=== PATIENT | female | born 1965 | race Hispanic/Latino ===

== ENCOUNTER 2019-05-30 08:34 | Emergency (ER) | payer OTHER ==
[2019-05-30] MEDS ORDERED: NA CHLORIDE 0.9% 1,000 ML ONE (09:10)
[2019-05-30 09:30] LABS: Absolute Lymphocytes (CBC) 1.1 K/uL (0.7-4.9); Basophils % 0.6 % (0-1.3); Hematocrit 39.9 % (36.0-45.0); Lymphocytes % 25.4 % (15.3-44.8); MPV 9.5 fL (7.6-11.3); RBC Red Blood Cell Count 4.35 M/uL (3.86-4.86)
--- NOTE | 2019-05-30 09:31 | RAD REPORT ---
EXAM DESCRIPTION: CT - Stone Protocol - 05/30/2019 9:16 am CLINICAL HISTORY: Left flank pain, history of kidney stones COMPARISON: CT February 2017 TECHNIQUE: Axial 3 mm thick images were obtained without oral or IV contrast. The [id number] span s the entirety of the system including uppermost abdomen and lung bases. All CT scans are performed using dose optimization technique as appropriate and may include automated exposure control or mA/KV adjustment according to patient size. FINDINGS: Mild left-sided hydronephrosis is present secondary to a 3 mm left UVJ calculus. Patient h as multiple bilateral 2-7 mm calyx calculi. Left kidney appears minimally edematous relative to the r ight. No suspicious renal masses. Isodense masses and pyelonephritis are not excluded on a stone prot ocol CT scan. Urinary bladder is fully contracted. Bladder calculus is not seen. No significant adren al finding. No focal liver lesions seen on noncontrast imaging. There is a subtle nodularity to the liver capsule . Correlation can be made with liver function studies. Liver size within normal range. The spleen and pancreas show no suspicious findings. No gallbladder or biliary tree abnormality ident ified. No suspicious bowel findings. No appendicitis findings. Patient has minimal left-sided diverticulosis . Uterus is absent. Ovaries are absent or atrophic. No mass or bulky lymphadenopathy. No omental thickening. No free air, free fluid or inflammatory stra nding. No significant bony abnormality. Degenerative changes are present. Most lumbar level is sacralized. T his body labeled L5. L4-5 degenerative disc disease is present. Clips are present along the anterior margin of the disc. 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 Slight re trolisthesis of L1 relative to L2 seen with disc space narrowing. IMPRESSION: Mild left-sided hydronephrosis secondary to a 3 mm left UVJ calculus. Multiple bilateral nonobstructing 2-7 mm calyx calculi. Subtle nodularity to the liver capsule with no focal lesions seen. Correlation can be made with liver function studies. Isodense masses and pyelonephritis are not excluded on stone protocol technique. Lumbar spine degenerative change as detailed.
[2019-05-30 09:40] LABS: Urine Bacteria >50 /HPF (<20); Urine Culture Reflex Order REFLEXED; Urine RBC TNTC /HPF (NONE SEEN)
[2019-05-30] MEDS ORDERED: ONDANSETRON 4 MG/2 ML VIAL ONE (09:40)
[2019-05-30] MEDS ORDERED: MORPHINE 4 MG/ML SYR ONE (09:40)
[2019-05-30] MEDS ORDERED: TAMSULOSIN 0.4 MG SR CAP ONE (09:45)
[2019-05-30 09:46] LABS: Albumin 3.5 g/dL (3.4-5.0); Bilirubin Direct 0.2 mg/dL (0-0.2); Bilirubin Total 0.5 mg/dL (0.2-1.0); Potassium 4.2 mmol/L (3.5-5.1); Protein, Total 6.8 g/dL (6.4-8.2)
--- NOTE | 2019-05-30 10:43 | ER ---
Nurse's Notes [facility] Name: Qi Luther Age: 53 yrs Sex: Female : 1965 Arrival Date: 05/30/2019 Time: 08:37 Bed 6 Private MD: Jama Calderon Diagnosis: Calculus of kidney with calculus of ureter Presentation: 05/30 08:57 Presenting complaint: Patient states: L flank pain that began last night. Pt reports a ss history of kidney stones and believes this may be another. Transition of care: patient was not received from another setting of care. Onset of symptoms was May 29, 2019. Risk Assessment: Do you want to hurt yourself or someone else? Patient reports no desire to harm self or others. Initial Sepsis Screen: Does the patient meet any 2 criteria? No. Patient's initial sepsis screen is negative. Does the patient have a suspected source of infection? No. Patient's initial sepsis screen is negative. Care prior to arrival: None. 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 - Social history:: Smoking status: Patient/guardian denies using tobacco. - Ebola Screening: : Patient denies exposure to infectious person Patient denies travel to an Ebola-affected area in the 21 days before illness onset. Screenin:10 Abuse screen: Denies threats or abuse. Denies injuries from another. Nutritional sv screening: No deficits noted. Tuberculosis screening: No symptoms or risk factors identified. Fall Risk None identified. Assessment: 09:10 General: Appears in no apparent distress. uncomfortable, well developed, Behavior is sv calm, cooperative, appropriate for age. Pain: Complains of pain in anterior aspect of left lateral abdomen Pain currently is 8 out of 10 on a pain scale. Quality of pain is described as sharp, Pain began 1 day ago. Is intermittent. Neuro: Level of Consciousness is awake, alert, obeys commands, Oriented to person, place, time, situation, Moves all extremities. Full function Gait is steady. Cardiovascular: Patient's skin is warm and dry. Respiratory: Airway is patent Respiratory effort is even, unlabored, Respiratory pattern is regular, symmetrical. GI: Abdomen is flat. : Reports pain in left flank(s), not urinating as much as she normally does. Derm: Skin is pink, warm \T\ dry. Musculoskeletal: Range of motion: intact in all extremities. 09:30 Reassessment: Patient appears in no apparent distress at this time. No changes from previously documented assessment. Patient and/or family updated on plan of care and expected duration. Pain level reassessed. Patient is alert, oriented x 3, equal unlabored respirations, skin warm/dry/pink. 11:15 Reassessment: Patient appears in no apparent distress at this time. Patient and/or sv family updated on plan of care and expected duration. Pain level reassessed. Patient is alert, oriented x 3, equal unlabored respirations, skin warm/dry/pink. Patient states feeling better. Patient states symptoms have improved. Vital Signs: 08:56 BP 125 / 75; Pulse 62; Resp 16; Temp 97.9(TE); Pulse Ox 99% on R/A; Weight 72.57 kg; Height 5 ft. 3 in. (160.02 cm); Pain 8/10; 09:41 BP 126 / 77; Pulse 63; Resp 16; Pulse Ox 99% ; sv 11:10 BP 118 / 78; Pulse 63; Resp 15; Temp 97.6(O); Pulse Ox 100% on R/A; mh5 08:56 Body Mass Index 28.34 (72.57 kg, 160.02 cm) ED Course: 08:37 Patient arrived in ED. ag5 08:37 Jama Calderon MD is Private Physician. ag5 08:56 Arm band placed on right wrist. 08:58 Triage completed. 08:58 Mateo Torres NP is PHCP. pm1 08:58 Erasto Goncalves MD is Attending Physician. pm1 09:00 Urine collected: clean catch specimen, blood tinged. 09:06 Bhavna Reynolds, RN is Primary Nurse. sv 09:10 Patient has correct armband on for positive identification. Bed in low position. Call sv light in reach. Adult w/ patient. Door closed. Head of bed elevated. 09:10 Inserted saline lock: 20 gauge in right antecubital area, using aseptic technique. sv Blood collected. Flushed right antecubital with 5 ml normal saline. 09:[address] via wheelchair. sv 09:13 CT completed. Patient tolerated procedure well. Patient moved back from CT. bq 09:17 CT Stone Protocol In Process Unspecified. EDMS 09:30 Awaiting lab results, Awaiting radiology results. sv 10:42 Jess Gaxiola MD is Referral Physician. pm1 11:09 IV discontinued, Pressure dressing applied. mh5 11:15 No provider procedures requiring assistance completed. sv 11:16 IV discontinued, intact, bleeding controlled, No redness/swelling at site. Pressure sv dressing applied. Administered Medications: 09:28 Drug: NS 0.9% 1000 ml Route: IV; Rate: 1000 ml; Site: right antecubital; sv 10:30 Follow up: Response: No adverse reaction; IV Status: Completed infusion; IV Intake: sv 1000ml 09:44 Drug: Zofran 4 mg Route: IVP; Site: right antecubital; sv 10:30 Follow up: Response: No adverse reaction sv 09:46 Drug: Flomax 0.4 mg Route: PO; sv 11:00 Follow up: Response: No adverse reaction sv 09:47 Drug: morphine 4 mg {Note: rass1.} Route: IVP; Site: right antecubital; sv 10:30 Follow up: Response: No adverse reaction; Pain is decreased; RASS: Alert and Calm (0) sv Intake: 10:30 IV: 1000ml; Total: 1000ml. sv Outcome: 10:42 Discharge ordered by MD. pm1 11:15 Discharged to home ambulatory, with family. sv 11:15 Condition: stable 11:15 Discharge instructions given to patient, family, Instructed on discharge instructions, follow up and referral plans. no drinking with medication, no driving heavy equipment, medication usage, increase fluid intake Demonstrated understanding of instructions, follow-up care, medications, Prescriptions given X 4. 11:16 Patient left the ED. sv Signatures: Dispatcher [employer] EDAK Bhavna Reynolds, VIRGIE RN sv Paradise Jaimes Shelby, RN RN ss Mateo Torres, TIM FOUNTAIN HELPER 1 Angi Simeon [facility] Brooke Choe [facility] Corrections: (The following items were deleted from the chart) 09:47 09:47 morphine 4 mg IVP in right antecubital sv sv
--- NOTE | 2019-05-30 10:44 | EDPHYS ---
Physician Documentation [facility] Name: Qi Luther Age: 53 yrs Sex: Female : 1965 Arrival Date: 05/30/2019 Time: 08:37 Bed 6 Private MD: Jama Calderon ED Physician Erasto Goncalves HPI: 05/30 09:16 This 53 yrs old Female presents to ER via Ambulatory with complaints of pm1 Possible Kidney Stone. 09:16 The patient complains of pain in the left low back. The pain does not radiate. Onset: pm1 The symptoms/episode began/occurred last night. Modifying factors: The symptoms are alleviated by nothing. the symptoms are aggravated by nothing. Associated signs and symptoms: Pertinent positives: hematuria, nausea, Pertinent negatives: dysuria, fever, vomiting. Severity of pain: in the emergency department the pain has improved. The patient has experienced similar episodes in the past, and the symptoms today are exactly the same, to previous kidney stones. The patient has not recently seen a physician. 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 - Social history:: Smoking status: Patient/guardian denies using tobacco. - Ebola Screening: : Patient denies exposure to infectious person Patient denies travel to an Ebola-affected area in the 21 days before illness onset. ROS: 09:16 Constitutional: Negative for fever, chills, and weight loss, Eyes: Negative for injury, pm1 pain, redness, and discharge, ENT: Negative for injury, pain, and discharge, Neck: Negative for injury, pain, and swelling, Cardiovascular: Negative for chest pain, palpitations, and edema, Respiratory: Negative for shortness of breath, cough, wheezing, and pleuritic chest pain. 09:16 MS/Extremity: Negative for injury and deformity, Skin: Negative for injury, rash, and discoloration, Neuro: Negative for headache, weakness, numbness, tingling, and seizure. 09:16 Abdomen/GI: Positive for nausea, Negative for abdominal pain, vomiting, diarrhea. 09:16 Back: Positive for flank pain, on the left. 09:16 : Positive for hematuria, Negative for urinary frequency, burning with urination, difficulty urinating. Exam: 09:16 Constitutional: This is a well developed, well nourished patient who is awake, alert, pm1 and in no acute distress. Head/Face: Normocephalic, atraumatic. Neck: Trachea midline, no thyromegaly or masses palpated, and no cervical lymphadenopathy. Supple, full range of motion without nuchal rigidity, or vertebral point tenderness. No Meningismus. Chest/axilla: Normal chest wall appearance and motion. Nontender with no deformity. No lesions are appreciated. Cardiovascular: Regular rate and rhythm with a normal S1 and S2. No gallops, murmurs, or rubs. Normal PMI, no JVD. No pulse deficits. Respiratory: Lungs have equal breath sounds bilaterally, clear to auscultation and percussion. No rales, rhonchi or wheezes noted. No increased work of breathing, no retractions or nasal flaring. Abdomen/GI: Soft, non-tender, with normal bowel sounds. No distension or tympany. No guarding or rebound. No evidence of tenderness throughout. 09:16 Skin: Warm, dry with normal turgor. Normal color with no rashes, no lesions, and no evidence of cellulitis. MS/ Extremity: Pulses equal, no cyanosis. Neurovascular intact. Full, normal range of motion. 09:16 Back: ROM is normal, normal spinal alignment noted, CVA tenderness, that is mild, is noted on the left, vertebral tenderness, is not appreciated. 09:16 Neuro: Orientation: is normal, Motor: is normal, moves all fours, Sensation: is normal, no obvious gross deficits. Vital Signs: 08:56 BP 125 / 75; Pulse 62; Resp 16; Temp 97.9(TE); Pulse Ox 99% on R/A; Weight 72.57 kg; ss Height 5 ft. 3 in. (160.02 cm); Pain 8/10; 09:41 BP 126 / 77; Pulse 63; Resp 16; Pulse Ox 99% ; sv 11:10 BP 118 / 78; Pulse 63; Resp 15; Temp 97.6(O); Pulse Ox 100% on R/A; mh5 08:56 Body Mass Index 28.34 (72.57 kg, 160.02 cm) ss MDM: 08:59 Patient medically screened. pm1 10:41 Data reviewed: vital signs. Data interpreted: Pulse oximetry: on room air is 99 %. pm1 Interpretation: normal. Counseling: I had a detailed discussion with the patient and/or guardian regarding: the historical points, exam findings, and any diagnostic results supporting the discharge/admit diagnosis, lab results, radiology results, the need for outpatient follow up, a urologist, to return to the emergency department if symptoms worsen or persist or if there are any questions or concerns that arise at home. 10:41 Special discussion: I discussed with the patient the need to follow-up with the pm1 PCP/specialist for the noted incidental finding on X-ray/CT scanning. with history of Hep C, recommended follow up on liver nodularity findings. 05/30 09:02 Order name: Basic Metabolic Panel; Complete Time: 09:57 pm1 05/30 09:02 Order name: CBC with Diff; Complete Time: 10:33 pm1 05/30 09:02 Order name: Creatinine for Radiology; Complete Time: 09:57 pm1 05/30 09:02 Order name: Hepatic Function; Complete Time: 09:57 pm1 05/30 09:02 Order name: Lipase; Complete Time: 09:57 pm1 05/30 09:02 Order name: Urine Microscopic Only; Complete Time: 09:41 pm1 05/30 09:02 Order name: CT Stone Protocol; Complete Time: 09:34 pm1 05/30 09:09 Order name: Urine Dipstick--Ancillary (enter results) eb 05/30 09:09 Order name: Urine --Ancillary (enter results) eb 05/30 09:42 Order name: Urine Culture EDVT 05/30 09:02 Order name: IV Saline Lock; Complete Time: 09:15 pm1 05/30 09:02 Order name: Labs collected and sent; Complete Time: 09:15 pm1 05/30 09:02 Order name: Urine Dipstick-Ancillary (obtain specimen); Complete Time: 09:06 pm1 Administered Medications: 09:28 Drug: NS 0.9% 1000 ml Route: IV; Rate: 1000 ml; Site: right antecubital; sv 10:30 Follow up: Response: No adverse reaction; IV Status: Completed infusion; IV Intake: sv 1000ml 09:44 Drug: Zofran 4 mg Route: IVP; Site: right antecubital; sv 10:30 Follow up: Response: No adverse reaction sv 09:46 Drug: Flomax 0.4 mg Route: PO; sv 11:00 Follow up: Response: No adverse reaction sv 09:47 Drug: morphine 4 mg {Note: rass1.} Route: IVP; Site: right antecubital; sv 10:30 Follow up: Response: No adverse reaction; Pain is decreased; RASS: Alert and Calm (0) sv Disposition: 19:49 Co-signature as Attending Physician, Erasto Goncalves MD I agree with the assessment and zayra plan of care. Disposition: 05/30/19 10:42 Discharged to Home. Impression: Calculus of kidney with calculus of ureter. - Condition is Stable. - Discharge Instructions: Kidney Stones, Dietary Guidelines to Help Prevent Kidney Stones. - Prescriptions for Tylenol- Codeine #3 300-30 mg Oral Tablet - take 2 tablets by ORAL route every 6 hours As needed; 20 tablet. Zofran 4 mg Oral Tablet - take 1 tablet by ORAL route every 8 hours As needed; 20 tablet. Flomax 0.4 mg Oral Capsule, Sust. Release 24 hr - take 1 capsule by ORAL route once daily 1/2 hour following the same meal each day; 10 capsule. Cipro 500 mg Oral Tablet - take 1 tablet by ORAL route every 12 hours for 7 days; 14 tablet. - Medication Reconciliation Form, Thank You Letter, Antibiotic Education, Prescription Opioid Use form. - Follow up: Emergency Department; When: As needed; Reason: Recheck today's complaints, Continuance of care, Re-evaluation by your physician. Follow up: Jess Gaxiola MD; When: 2 - 3 days; Reason: Recheck today's complaints, Continuance of care, Re-evaluation by your physician. - Problem is new. - Symptoms have improved. Signatures: Dispatcher [employer] Bhavna Dominguez RN RN sv Anderson, Corey, MD MD cha Smirch, Shelby, RN RN ss Marinas, Patrick, NP CHINESE LANGUAGE PROFESSOR pm1 Corrections: (The following items were deleted from the chart) 11:16 10:42 05/30/2019 10:42 Discharged to Home. Impression: Calculus of kidney with calculus sv of ureter. Condition is Stable. Forms are Medication Reconciliation Form, Thank You Letter, Antibiotic Education, Prescription Opioid Use. Follow up: Emergency Department; When: As needed; Reason: Recheck today's complaints, Continuance of care, Re-evaluation by your physician. Follow up: Jess Gaxiola; When: 2 - 3 days; Reason: Recheck today's complaints, Continuance of care, Re-evaluation by your physician. Problem is new. Symptoms have improved. pm1
[2019-05-30 11:36] VITALS: BP 118/78; TEMP 97.6; O2SAT 100
[2019-05-30 14:11] LABS: Urine Blood 3+ (NEG); Urine Glucose TRACE (NEG); Urine Protein 2+ (NEG); Urine pH 6.5 (5.0-7.0)
== END 2019-05-30 11:16 | disposition home or self-care (01) ==
LOC: ER 08:34
DX: N20.2 Calculus of kidney with calculus of ureter (principal); I10 Essential (primary) hypertension; E11.9 Type 2 diabetes mellitus without complications; Z87.442 Personal history of urinary calculi; Z88.2 Allergy status to sulfonamides
CPT/HCPCS: 96361; 87088; 85025; 87086; 80048; 36415; 81025; 80076; 83690; 76377; 74176; 96375; 96374; 99284; J7030; J2405; 81003; 81015

== ENCOUNTER 2019-09-27 14:04 | Emergency (ER) | payer OTHER ==
[2019-09-27] MEDS ORDERED: NA CHLORIDE 0.9% 1,000 ML ONE (14:45)
[2019-09-27] MEDS ORDERED: ONDANSETRON 4 MG/2 ML VIAL ONE (14:45)
[2019-09-27] MEDS ORDERED: MORPHINE 4 MG/ML SYR ONE (14:45)
[2019-09-27 14:52] LABS: Absolute Lymphocytes (CBC) 1.2 K/uL (0.7-4.9); Basophils % 0.6 % (0-1.3); Hematocrit 40.2 % (36.0-45.0); Lymphocytes % 21.1 % (15.3-44.8); MPV 9.7 fL (7.6-11.3); RBC Red Blood Cell Count 4.37 M/uL (3.86-4.86)
[2019-09-27 14:55] LABS: Urine Blood TRACE (NEG); Urine Glucose NEGATIVE (NEG); Urine Protein NEGATIVE (NEG); Urine Specific Gravity >1.030 (1.005-1.030)
--- NOTE | 2019-09-27 14:55 | RAD REPORT ---
EXAM DESCRIPTION: CT - Stone Protocol - 09/27/2019 2:33 pm CLINICAL HISTORY: FLANK PAIN COMPARISON: Stone Protocol dated 05/30/2019 TECHNIQUE: Axial 5 mm thick images were obtained without oral or IV contrast. The [id number]-cr-ggoz span s the entirety of the system including uppermost abdomen and lung bases. All CT scans are performed using dose optimization technique as appropriate and may include automated exposure control or mA/KV adjustment according to patient size. FINDINGS: Mild to moderate hydronephrosis of the right collecting system secondary to a 4-5 mm right UVJ calculus. Additional nonobstructing calyx calculi noted in each kidney. No left-sided hydronephr osis. No suspicious renal masses. Isodense masses and pyelonephritis are not excluded on a stone prot ocol CT scan. No significant adrenal finding. Bladder is fully contracted. No bladder calculi seen. S everal phleboliths are seen along the pelvic floor. Imaged portions of the liver, spleen and pancreas show no suspicious findings on non-contrast imaging . No gallbladder or biliary tree abnormality identified. No suspicious bowel findings. Minimal diverticulosis is present without diverticulitis. No hernia, mass or bulky lymphadenopathy noted. No free air, free fluid or inflammatory stranding. Degenerative disc disease present at L5-S1. Postsurgical clips are seen anterior margin of the L5-S1 disc from prior uterus or bladder suspension procedure. The uterus is surgically absent. Ovaries are atrophic or absent. IMPRESSION: Mild to moderate right-sided hydronephrosis secondary to a 4-5 mm right UVJ stone. Bilateral nonobstructing calyx calculi. Isodense masses and pyelonephritis are not excluded on stone protocol technique.
[2019-09-27 15:06] LABS: Albumin 3.6 g/dL (3.4-5.0); Bilirubin Direct 0.1 mg/dL (0-0.2); Bilirubin Total 0.4 mg/dL (0.2-1.0); Potassium 4.2 mmol/L (3.5-5.1); Protein, Total 7.3 g/dL (6.4-8.2)
[2019-09-27 15:31] LABS: Urine Bacteria <20 /HPF (<20); Urine Culture Reflex Order NOT NEEDED; Urine Mucus 2+ /HPF (NONE SEEN); Urine RBC <5 /HPF (NONE SEEN)
[2019-09-27] MEDS ORDERED: KETOROLAC 30 MG/ML INJ ONE (15:31)
--- NOTE | 2019-09-27 15:39 | EDPHYS ---
Physician Documentation [facility] Name: Qi Luther Age: 54 yrs Sex: Female : 1965 Arrival Date: 09/27/2019 Time: 14:07 Bed 15 Private MD: Jama Calderon ED Physician Erasto Goncalves HPI: 09/26 14:15 This 54 yrs old Female presents to ER via Ambulatory with complaints of pm1 Possible Kidney Stone. 14:15 The patient complains of pain in the right low back. The pain does not radiate. Onset: pm1 The symptoms/episode began/occurred yesterday. Modifying factors: The symptoms are alleviated by prescription medications from Dr. Calderon, the symptoms are aggravated by nothing. Associated signs and symptoms: Pertinent negatives: diarrhea, dysuria, fever, nausea, vomiting. Severity of pain: in the emergency department the pain is actually worse. The patient has experienced similar episodes in the past, several times. No, but contacted PCP by phone yesterday and was given pain medications for kidney stones. 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 - Social history:: Patient/guardian denies using alcohol, street drugs, tobacco products, Smoking status: Patient denies any tobacco usage or history of. ROS: 14:15 Constitutional: Negative for fever, chills, and weight loss, Cardiovascular: Negative pm1 for chest pain, palpitations, and edema, Respiratory: Negative for shortness of breath, cough, wheezing, and pleuritic chest pain, Abdomen/GI: Negative for abdominal pain, nausea, vomiting, diarrhea, and constipation. 14:15 : Negative for injury, bleeding, discharge, and swelling, MS/Extremity: Negative for injury and deformity, Skin: Negative for injury, rash, and discoloration, Neuro: Negative for headache, weakness, numbness, tingling, and seizure. 14:15 Back: Positive for flank pain, on the right. Exam: 14:15 Constitutional: This is a well developed, well nourished patient who is awake, alert, pm1 and in no acute distress. Head/Face: Normocephalic, atraumatic. Chest/axilla: Normal chest wall appearance and motion. Nontender with no deformity. No lesions are appreciated. 14:15 Abdomen/GI: Soft, non-tender, with normal bowel sounds. No distension or tympany. No guarding or rebound. No evidence of tenderness throughout. 14:15 Skin: Warm, dry with normal turgor. Normal color with no rashes, no lesions, and no evidence of cellulitis. MS/ Extremity: Pulses equal, no cyanosis. Neurovascular intact. Full, normal range of motion. 14:15 Cardiovascular: Exam negative for acute changes, Rate: normal, Rhythm: regular, Pulses: no pulse deficits are appreciated. 14:15 Respiratory: Exam negative for acute changes, respiratory distress, shortness of breath, wheezing. 14:15 Back: Exam negative for acute changes, CVA tenderness, that is mild, is noted on the right, vertebral tenderness, is not appreciated. 14:15 Neuro: Exam negative for acute changes, Orientation: is normal, Motor: is normal, moves all fours. Vital Signs: 14:16 BP 151 / 84; Pulse 70; Resp 17; Temp 98.5; Pulse Ox 98% ; Pain 8/10; ll1 15:30 BP 136 / 83; Pulse 63; Resp 18; Pulse Ox 99% on R/A; vc MDM: 14:12 Patient medically screened. zayra 15:15 ED course: Patient has flomax and tylenol #3 called in from her PCP, Yumiko, yesterday. pm1 15:15 Counseling: I had a detailed discussion with the patient and/or guardian regarding: pm1 radiology results. 15:37 Data reviewed: vital signs. Data interpreted: Pulse oximetry: on room air is 98 %. pm1 Interpretation: normal. 15:37 Counseling: I had a detailed discussion with the patient and/or guardian regarding: the pm1 historical points, exam findings, and any diagnostic results supporting the discharge/admit diagnosis, lab results, the need for outpatient follow up, a urologist, to return to the emergency department if symptoms worsen or persist or if there are any questions or concerns that arise at home. 16:16 ED course: Patient reports limited pain relief with Tylenol #3 so she would like pm1 Tramadol. BLEACH ANALYST Aware reviewed. Aware that patient got tylenol # 3 yesterday. 09/26 14:14 Order name: Basic Metabolic Panel; Complete Time: 15:07 pm1 09/26 14:14 Order name: CBC with Diff; Complete Time: 15:00 pm1 09/26 14:14 Order name: Creatinine for Radiology; Complete Time: 15:14 pm1 09/26 14:14 Order name: Hepatic Function; Complete Time: 15:07 pm1 09/26 14:14 Order name: Lipase; Complete Time: 15:07 pm1 09/26 14:14 Order name: Urine Microscopic Only; Complete Time: 15:36 pm1 09/26 14:14 Order name: IV Saline Lock; Complete Time: 14:37 pm1 09/26 14:14 Order name: Labs collected and sent; Complete Time: 14:37 pm1 09/26 14:14 Order name: CT Stone Protocol; Complete Time: 15:00 pm1 09/26 14:38 Order name: Urine Dipstick--Ancillary (enter results); Complete Time: 15:00 bd 09/26 14:14 Order name: Urine Dipstick-Ancillary (obtain specimen); Complete Time: 14:37 pm1 Administered Medications: 14:45 Drug: NS 0.9% 1000 ml Route: IV; Rate: 1000 ml; Site: right antecubital; vc 14:45 Drug: morphine 4 mg Route: IVP; Site: right antecubital; vc 14:45 Drug: Zofran (Ondansetron) 4 mg Route: IVP; Site: right antecubital; vc 15:27 Drug: TORadol - Ketorolac 15 mg Route: IVP; Site: right antecubital; vc Disposition: 09/27 10:04 Co-signature as Attending Physician, Erasto Goncalves MD I agree with the assessment and zayra plan of care. Disposition: 09/27/19 15:38 Discharged to Home. Impression: Calculus of kidney with calculus of ureter. - Condition is Stable. - Discharge Instructions: Kidney Stones, Dietary Guidelines to Help Prevent Kidney Stones. - Prescriptions for Zofran 4 mg Oral Tablet - take 1 tablet by ORAL route every 12 hours As needed; 20 tablet. Tramadol 50 mg Oral Tablet - take 1 tablet by ORAL route every 8 hours as needed; 12 tablet. - Medication Reconciliation Form, Thank You Letter, Antibiotic Education, Prescription Opioid Use form. - Follow up: Emergency Department; When: As needed; Reason: Worsening of condition. Follow up: Jess Gaxiola MD; When: 2 - 3 days; Reason: Recheck today's complaints, Continuance of care, Re-evaluation by your physician. - Problem is new. - Symptoms have improved. Signatures: Dispatcher [employer] EDMS Erasto Goncalves MD MD cha Marinas, Patrick, FRENCH INSTRUCTOR FRENCH INSTRUCTOR pm1 Cat Bertrand RN RN Alejandro Murdock RN RN ll1 Corrections: (The following items were deleted from the chart) 09/26 16:24 15:38 09/27/2019 15:38 Discharged to Home. Impression: Calculus of kidney with calculus vc of ureter. Condition is Stable. Forms are Medication Reconciliation Form, Thank You Letter, Antibiotic Education, Prescription Opioid Use. Follow up: Emergency Department; When: As needed; Reason: Worsening of condition. Follow up: Jess Gaxiola; When: 2 - 3 days; Reason: Recheck today's complaints, Continuance of care, Re-evaluation by your physician. Problem is new. Symptoms have improved. pm1
--- NOTE | 2019-09-27 15:39 | ER ---
Nurse's Notes [facility] Name: Qi Luther Age: 54 yrs Sex: Female : 1965 Arrival Date: 09/27/2019 Time: 14:07 Bed 15 Private MD: Jama Calderon Diagnosis: Calculus of kidney with calculus of ureter Presentation: 09/26 14:16 Chief complaint: Patient states: Right flank pain for 2 days. + urinary frequency with ll1 oliguria. Had kidney stone last May, states it feels the same. No fever. Coronavirus screen: Proceed with normal triage. Patient denies a cough. Patient denies shortness of breath or difficulty breathing. Patient denies measured and/or subjective temperature greater than 100.4F prior to today's visit. Patient denies travel on a cruise ship or to a country the [facility] currently lists as an affected area. Patient denies contact with known and/or suspected case of COVID-19. Ebola Screen: Patient denies travel to an Ebola-affected area in the 21 days before illness onset. Initial Sepsis Screen: Does the patient meet any 2 criteria? No. Patient's initial sepsis screen is negative. Does the patient have a suspected source of infection? No. Patient's initial sepsis screen is negative. Risk Assessment: Do you want to hurt yourself or someone else? Patient reports no desire to harm self or others. Onset of symptoms was September 26, 2019. 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 - Social history:: Patient/guardian denies using alcohol, street drugs, tobacco products, Smoking status: Patient denies any tobacco usage or history of. Screenin:30 Abuse screen: Denies threats or abuse. Nutritional screening: No deficits noted. vc Tuberculosis screening: No symptoms or risk factors identified. Fall Risk None identified. Assessment: 14:20 General: Appears in no apparent distress. uncomfortable, Behavior is calm, cooperative, vc appropriate for age. Pain: Complains of pain in posterior aspect of right lateral abdomen, anterior aspect of right lateral abdomen and right lower quadrant Pain does not radiate. Alleviated by medications, walking. Neuro: Level of Consciousness is awake, alert, obeys commands, Oriented to person, place, time, situation. Cardiovascular: Capillary refill < 3 seconds Patient's skin is warm and dry. Respiratory: Airway is patent Respiratory effort is even, unlabored, Respiratory pattern is regular, symmetrical. GI: No signs and/or symptoms were reported involving the gastrointestinal system. Bowel sounds present X 4 quads. Abd is soft Abd is non tender. : Reports urinary frequency. EENT:. Derm: No signs and/or symptoms reported regarding the dermatologic system. 15:20 Reassessment: Patient appears in no apparent distress at this time. Patient and/or vc family updated on plan of care and expected duration. Pain level reassessed. Patient is alert, oriented x 3, equal unlabored respirations, skin warm/dry/pink. 16:20 Reassessment: Patient appears in no apparent distress at this time. Patient and/or vc family updated on plan of care and expected duration. Pain level reassessed. Patient is alert, oriented x 3, equal unlabored respirations, skin warm/dry/pink. Patient denies pain at this time. Patient states feeling better. Patient states symptoms have improved. Vital Signs: 14:16 BP 151 / 84; Pulse 70; Resp 17; Temp 98.5; Pulse Ox 98% ; Pain 8/10; ll1 15:30 BP 136 / 83; Pulse 63; Resp 18; Pulse Ox 99% on R/A; vc ED Course: 14:07 Patient arrived in ED. mr 14:07 Jama Calderon MD is Private Physician. mr 14:09 [facility] pm1 14:09 Erasto Goncalves MD is Attending Physician. pm1 14:16 Alejandro Mejia RN is Primary Nurse. ll1 14:17 Triage completed. ll1 14:18 Arm band placed on Patient placed in an exam room, on a stretcher. ll1 14:20 Patient has correct armband on for positive identification. Bed in low position. Call vc light in reach. Side rails up X 1. Pulse ox on. NIBP on. 14:33 CT completed. Patient moved back from CT. mw3 14:33 CT Stone Protocol In Process Unspecified. EDMS 15:38 Jess Gaxiola MD is Referral Physician. pm1 16:20 No provider procedures requiring assistance completed. IV discontinued, intact, vc bleeding controlled, No redness/swelling at site. Pressure dressing applied. Administered Medications: 14:45 Drug: NS 0.9% 1000 ml Route: IV; Rate: 1000 ml; Site: right antecubital; vc 14:45 Drug: morphine 4 mg Route: IVP; Site: right antecubital; vc 14:45 Drug: Zofran (Ondansetron) 4 mg Route: IVP; Site: right antecubital; vc 15:27 Drug: TORadol - Ketorolac 15 mg Route: IVP; Site: right antecubital; vc Outcome: 15:38 Discharge ordered by MD. pm1 16:20 Discharged to home ambulatory. vc 16:20 Condition: good 16:20 Discharge instructions given to patient, Instructed on discharge instructions, follow up and referral plans. no drinking with medication, no driving heavy equipment, medication usage, Demonstrated understanding of instructions, follow-up care, medications, Prescriptions given X 2. 16:24 Patient left the ED. vc Signatures: Dispatcher [employer] JENNIFERIL Carol Bhatt BrianMateo, CAFE ASSOCIATE CAFE ASSOCIATE pm1 Janelle Layton mw3 Cat Bertrand RN RN vc Lewis, Lynsay, RN RN ll1
[2019-09-27 16:38] VITALS: BP 136/83; O2SAT 99
[2019-09-27 16:40] VITALS: TEMP 98.5
== END 2019-09-27 16:24 | disposition home or self-care (01) ==
LOC: ER 14:04
DX: N20.2 Calculus of kidney with calculus of ureter (principal); I10 Essential (primary) hypertension; Z87.442 Personal history of urinary calculi; Z88.2 Allergy status to sulfonamides; Z88.8 Allergy status to other drugs, medicaments and biological substances
CPT/HCPCS: 85025; 80048; 36415; 80076; 83690; 76377; 74176; J7030; J2405; 81003; 81015; 96374; 96375; 99284

== ENCOUNTER 2024-05-17 12:06 | Emergency (ER) | payer BC ==
--- NOTE | 2024-05-17 12:58 | ER ---
Nurse's Notes [facility] Name: Qi Luther Age: 58 yrs Sex: Female : 1965 Arrival Date: 05/17/2024 Time: 12:06 Bed 9 Private MD: Diagnosis: Sciatica, left side Presentation: 05/17 12:17 Chief complaint: Patient states: MID BACK PAIN THAT RADIATES DOWN TO LEFT LEG. PT cm10 STATES THAT THIS BEGAN 5 DAYS AGO. NO TRAUMA OR INJURY. Coronavirus screen: Client denies travel out of the [place] in the last 14 days. Ebola Screen: Patient denies travel to an Ebola-affected area in the 21 days before illness onset. Initial Sepsis Screen: Does the patient meet any 2 criteria? No. Patient's initial sepsis screen is negative. Does the patient have a suspected source of infection? No. Patient's initial sepsis screen is negative. Risk Assessment: Do you want to hurt yourself or someone else? Patient reports no desire to harm self or others. Onset of symptoms was May 12, 2024. 12:17 Method Of Arrival: Ambulatory cm10 12:17 Acuity: VANESSA 4 cm10 Triage Assessment: 12:19 General: Appears in no apparent distress. comfortable, Behavior is calm, cooperative. cm10 Neuro: No deficits noted. Level of Consciousness is awake, alert, obeys commands, Oriented to person, place, time, situation, Appropriate for age. Respiratory: No deficits noted. Airway is patent Respiratory effort is even, unlabored, Respiratory pattern is regular, symmetrical. Historical: - Allergies: 12:18 Septra; cm10 12:18 Sulfa (Sulfonamide Antibiotics); cm10 - PMHx: 12:18 Diabetes - NIDDM; Hyperlipidemia; Hypertension; Kidney stones; cm10 - PSHx: 12:18 partial hysterectomy; cm10 - Immunization history:: Adult Immunizations up to date. - Infectious Disease History:: Denies. - Social history:: Smoking status: Patient denies any tobacco usage or history of. Screenin:39 [facility] ED Fall Risk Assessment (Adult) History of falling in the last 3 months, jb4 including since admission No falls in past 3 months (0 pts) Confusion or Disorientation No (0 pts) Intoxicated or Sedated No (0 pts) Impaired Gait No (0 pts) Mobility Assist Device Used No (0 pt) Altered Elimination No (0 pt) Score/Fall Risk Level 0 - 2 = Low Risk Oriented to surroundings, Maintained a safe environment. Abuse screen: Denies threats or abuse. Nutritional screening: No deficits noted. Tuberculosis screening: No symptoms or risk factors identified. Assessment: 12:39 General: Appears in no apparent distress. comfortable, Behavior is calm, cooperative, jb4 appropriate for age. Pain: Complains of pain in left low back and left mid back Pain radiates to left leg Pain currently is 9 out of 10 on a pain scale. Quality of pain is described as burning. Neuro: Level of Consciousness is awake, alert, obeys commands, Oriented to person, place, time, situation. Cardiovascular: Patient's skin is warm and dry. Respiratory: Airway is patent Respiratory effort is even, unlabored, Respiratory pattern is regular, symmetrical. Derm: Skin is intact, Skin is pink, warm \T\ dry. Musculoskeletal: Circulation, motion, and sensation intact. Range of motion: intact in all extremities. 13:27 Reassessment: Patient appears in no apparent distress at this time. Patient and/or jb4 family updated on plan of care and expected duration. Pain level reassessed. Patient is alert, oriented x 3, equal unlabored respirations, skin warm/dry/pink. Vital Signs: 12:17 BP 121 / 87; Pulse 71; Resp 16; Temp 97.3(TE); Pulse Ox 97% on R/A; Weight 71.21 kg; cm10 Height 5 ft. 3 in. ; Pain 9/10; 12:17 Body Mass Index 27.81 (71.21 kg, 160.02 cm) cm10 12:17 Pain Scale: Adult cm10 ED Course: 12:08 Patient arrived in ED. mr 12:18 Triage completed. cm10 12:19 Arm band placed on right wrist. Patient placed in waiting room. cm10 12:36 Toan Suarez RN is Primary Nurse. jb4 12:39 Patient has correct armband on for positive identification. Bed in low position. Call jb4 light in reach. Side rails up X 1. Provided Education on: plan of care. 12:41 En Duff FNP-C is PHCP. dr5 12:41 Roel Yeung MD is Attending Physician. dr5 13:27 No provider procedures requiring assistance completed. Patient did not have IV access jb4 during this emergency room visit. Administered Medications: 13:27 Drug: Ketorolac IM 30 mg IM once Route: IM; Site: right deltoid; jb4 13:27 Follow up: Response: Medication administered at discharge. jb4 Medication: 12:39 VIS not applicable for this client. jb4 Outcome: 12:58 Discharge ordered by . daniella 13:27 Discharged to home ambulatory, jb4 13:27 Condition: stable 13:27 Discharge instructions given to patient, Instructed on discharge instructions, follow up and referral plans. no drinking with medication, no driving heavy equipment, medication usage, Demonstrated understanding of instructions, follow-up care, medications, Prescriptions given X 3, 13:28 Patient left the ED. jb4 Signatures: Carol Bhatt, Atul Pollard Toan Suarez, RN RN jb4 Karolyn Simeon RN RN cm10 En Duff, REFERENCE INVESTIGATOR-C REFERENCE INVESTIGATOR-Cdr5
--- NOTE | 2024-05-17 12:58 | EDPHYS ---
Physician Documentation [facility] Name: Qi Luther Age: 58 yrs Sex: Female : 1965 Arrival Date: 05/17/2024 Time: 12:06 Bed 9 Private MD: ED Physician Roel Yeung HPI: 05/17 13:38 This 58 yrs old Female presents to ER via Ambulatory with complaints of Left dr5 Lower Back Pain. 13:38 The patient presents with pain that is acute, with no known mechanism of injury. The dr5 symptoms are located in the low back, left low back. Onset: The symptoms/episode began/occurred 5 day(s) ago. The pain radiates to the lateral aspect of left thigh, lateral aspect of left knee and lateral aspect of left calf. Associated signs and symptoms: Pertinent negatives: chest pain, fever, incontinence, numbness, tingling, urinary retention, weakness. Patient is a 58-year-old female with history of diabetes, hypertension, hyperlipidemia coming in with left lower back pain radiating down left leg for the past 5 days. Patient denies injury or trauma, numbness or tingling to bilateral lower legs, perirectal numbness, or urinary or bowel incontinence. Historical: - Allergies: 12:18 Septra; cm10 12:18 Sulfa (Sulfonamide Antibiotics); cm10 - PMHx: 12:18 Diabetes - NIDDM; Hyperlipidemia; Hypertension; Kidney stones; cm10 - PSHx: 12:18 partial hysterectomy; cm10 - Immunization history:: Adult Immunizations up to date. - Infectious Disease History:: Denies. - Social history:: Smoking status: Patient denies any tobacco usage or history of. ROS: 13:38 Constitutional: as per hpi dr5 Exam: 13:38 Constitutional: This is a well developed, well nourished patient who is awake, alert, dr5 and in no acute distress. Head/Face: Normocephalic, atraumatic. Eyes: Pupils equal round and reactive to light, extra-ocular motions intact. Lids and lashes normal. Conjunctiva and sclera are non-icteric and not injected. Cornea within normal limits. Periorbital areas with no swelling, redness, or edema. ENT: Nares patent. No nasal discharge, no septal abnormalities noted. Tympanic membranes are normal and external auditory canals are clear. Oropharynx with no redness, swelling, or masses, exudates, or evidence of obstruction, uvula midline. Mucous membranes moist. Chest/axilla: Normal chest wall appearance and motion. Nontender with no deformity. No lesions are appreciated. Cardiovascular: Regular rate and rhythm with a normal S1 and S2. Normal PMI, no JVD. No pulse deficits. Respiratory: Lungs have equal breath sounds bilaterally, clear to auscultation. No rales, rhonchi or wheezes noted. No increased work of breathing, no retractions or nasal flaring. 13:38 Neuro: Awake and alert, GCS 15, oriented to person, place, time, and situation. Cranial nerves II-XII grossly intact. Motor strength 5/5 in all extremities. Sensory grossly intact. Cerebellar exam normal. Normal gait. 13:38 Abdomen/GI: Inspection: abdomen appears normal, 13:38 Back: pain, that is mild, of the left low back, ROM is normal, normal spinal alignment noted, CVA tenderness, is absent, vertebral tenderness, Straight leg raises: left lower extremity illicits pain, at 30 degrees, 13:41 Neuro: Exam negative for acute changes, dr5 Vital Signs: 12:17 BP 121 / 87; Pulse 71; Resp 16; Temp 97.3(TE); Pulse Ox 97% on R/A; Weight 71.21 kg; cm10 Height 5 ft. 3 in. ; Pain 9/10; 12:17 Body Mass Index 27.81 (71.21 kg, 160.02 cm) cm10 12:17 Pain Scale: Adult cm10 MDM: 12:41 Medical Screening Exam initiated dr5 13:38 Differential diagnosis: Scoliosis sprain, Sciatic Nerve Impingement. Data reviewed: dr5 vital signs, nurses notes. I considered the following discharge prescriptions or medication management in the emergency department Medications were administered in the Emergency Department. See MAR. Care significantly affected by the following chronic conditions: Diabetes, Hypertension, Hyperlipidemia. Care significantly affected by the following Social Determinants of Health: Poor access to healthcare and/or lack of insurance, Poor access to transportation, Problems related to employment. Counseling: I had a detailed discussion with the patient and/or guardian regarding the historical points, exam findings, and any diagnostic results supporting the discharge/admit diagnosis, the need for outpatient follow up, for definitive care, a family practitioner, to return to the emergency department if symptoms worsen or persist or if there are any questions or concerns that arise at home. ED course: Symptoms and exam consistent with sciatic nerve pain. Will give gabapentin, steroid pack prescriptions. Toradol injection given in ER. Recommended patient follow-up primary care doctor as needed. Alternate Tylenol and Motrin as needed at home. Increase fluids. All questions answered.. Administered Medications: 13:27 Drug: Ketorolac IM 30 mg IM once Route: IM; Site: right deltoid; jb4 13:27 Follow up: Response: Medication administered at discharge. jb4 Disposition Summary: 05/17/24 12:58 Discharge Ordered Notes: Location: Home dr5 Condition: Stable dr5 Diagnosis - Sciatica, left side dr5 Followup: dr5 - With: Emergency Department - When: As needed - Reason: Worsening of condition Followup: dr5 - With: Private Physician - When: 1 - 2 days - Reason: Recheck today's complaints, Continuance of care, Re-evaluation by your physician Discharge Instructions: - Discharge Summary Sheet dr5 - Sciatica dr5 Forms: - Medication Reconciliation Form dr5 - Patient Portal Instructions dr5 - Leadership Thank You Letter dr5 Prescriptions: - gabapentin 300 mg Oral capsule - take 1 capsule ORAL route every 8 hours As needed; 30 capsule; Refills: 0, dr5 Product Selection Permitted - Cyclobenzaprine 10 mg Oral Tablet - take 1 tablet ORAL route every 8 hours As needed; 30 tablet; Refills: 0, dr5 Product Selection Permitted - Prednisone 20 mg Oral Tablet - take 2 tablets ORAL route once daily for 5 days; 10 tablet; Refills: 0, Product dr5 Selection Permitted Signatures: Toan Suarez RN RN jb4 Karolyn Simeon RN RN cm10 En Duff, DIRECT MARKETING INTERN-C DIRECT MARKETING INTERN-Cdr5
[2024-05-17] MEDS ORDERED: KETOROLAC 30 MG/ML INJ ONE (13:15)
[2024-05-17 13:40] VITALS: BP 121/87; TEMP 97.3; O2SAT 97
== END 2024-05-17 13:28 | disposition home or self-care (01) ==
LOC: ER 12:06
DX: M54.32 Sciatica, left side (principal)
CPT/HCPCS: 96372; 99284